=== PATIENT | female | born 1975 | race Caucasian/White ===

== ENCOUNTER 2018-10-06 14:05 | Inpatient (IN) ==
[2018-10-06 14:39] LABS: Hematocrit (blood only) 40.3 % (37-47); Mean Corpuscular Hgb Conc 34.7 g/dL (32-36); Mean Corpuscular Volume 92.6 fL (80-100); Mean Platelet Volume 10.6 fL (7.4-10.4); Platelet Count 277 K/uL (130-400); RDW Coefficient of Variation 13.8 % (11.5-14.5); Red Blood Count 4.35 M/uL (4.2-5.4); White Blood Count 13.01 K/uL (4.8-10.8)
[2018-10-06 14:48] LABS: Albumin Level 4.1 gm/dl (3.4-5.0); BUN Creatinine Ratio 9.8 (10-20); Blood Urea Nitrogen 10 mg/dl (7-18); Calcium 9.8 mg/dl (8.5-10.1); Carbon Dioxide 20 mmol/L (21-32); Chloride 107 mmol/L (98-107); Creatinine Clr Calc Pharmacy 58.8 ml/min; Est GFR (African American) 75.7; Est GFR (Non-African American) 65.3; Glucose 120 mg/dl (70-99); Potassium 3.6 mmol/L (3.5-5.1); Sodium 136 mmol/L (136-145)
--- NOTE | 2018-10-06 14:52 | XRay Report ---
XR chest 1V portable CLINICAL HISTORY: Chest pain and shortness of breath. COMPARISON STUDY: No previous studies for comparison. FINDINGS: Lung volumes are normal. Lungs are clear. There is no pneumothorax or pleural effusion. Car diac size is normal. Mediastinal contours are normal. There is no evidence for pulmonary edema. IMPRESSION: No acute cardiopulmonary findings. Electronically signed by: Patric Spear M.D. 10/06/2018 2:51 PM
[2018-10-06 14:53] LABS: Alanine Aminotransferase 19 U/L (12-78); Albumin Globulin Ratio 1.1 (0.9-2); Alkaline Phosphatase 84 U/L (45-117); Aspartate Aminotransferase 11 U/L (15-37); Bilirubin,Total 0.4 mg/dl (0.2-1); Globulin 3.9 gm/dl (2.5-4.0); Troponin I < 0.015 ng/ml (0-0.045)
[2018-10-06] MEDS ORDERED: NITROGLYCERIN 2% OINTMENT 30GM TUBE EXT STA (15:10)
[2018-10-06] MEDS ORDERED: HYDROmorphone INJ 0.5 MG/0.5 ML SYR IV STA ×2 (15:10→17:04)
[2018-10-06] MEDS ORDERED: ONDANSETRON INJ 2 MG/ML 2 ML VIAL IV STA (15:10)
[2018-10-06 15:21] LABS: ALC (manual) 5.27 K/uL (1.2-3.4); Lymphocytes # (manual) 3.47 K/uL (1.2-3.4); Lymphocytes % (manual) 26.7 %; Monocytes # (manual) 0.22 K/uL (0.11-0.59); Monocytes % (manual) 1.7 %; Neutrophils % (manual) 57.8 %
[2018-10-06 15:23] LABS: Pregnancy Test, Serum Negative (Negative)
[2018-10-06] MEDS ORDERED: OPTIRAY 320 125ml IV PRN (16:26)
--- NOTE | 2018-10-06 16:33 | CT Scan Report ---
CT ANGIOGRAM OF THE CHEST CLINICAL HISTORY: Atypical chest pain and shortness of breath. Possible pulmonary wasn't COMPARISON STUDY: Chest x-ray dated 10/06/2018 TECHNIQUE: Following the IV administration of 118 mL of Optiray-320, CT angiogram of the thorax was p erformed from the thoracic inlet to the lung bases utilizing the pulmonary embolus protocol. Images a re reviewed in the axial, sagittal, and coronal planes. IV contrast was administered without complica tion. MIP imaging was performed. A dose lowering technique was utilized adhering to the principles o f ALARA. CT DOSE: 230.29 mGy.cm FINDINGS: No pathologically enlarged axillary mediastinal or hilar lymph nodes were visualized. There was no evidence of thoracic aortic dilatation. There were no pulmonary artery filling defects to indicate acute pulmonary embolism. No pleural effusions are visualized. There was no evidence of focal pulmonary consolidation. There are mild dependent atelectatic changes IMPRESSION: 1. No acute intrathoracic findings 2. No evidence of acute pulmonary embolism 3. No evidence of focal pulmonary consolidation Electronically signed by: Favian Brandt M.D. 10/06/2018 4:32 PM
--- NOTE | 2018-10-06 17:10 | Emergency Department Note ---
ED Visit Note I assisted in the care of this patient with Dr. Holland. Please see his note for further details. . Resident Activity Tracking Resident Involvement: Resident Care Provided Care Provided: Adult ED
--- NOTE | 2018-10-06 18:12 | History & Physical Report ---
Date of Service October 06, 2018 Assessment & Plan (1) Substernal chest pain: Present on admission with chest pain, b/l arms tingling associated with diaphoresis Need to R/O ACS Risk factor smoker and family hx (Dad from heart attack at age 45) Initial troponin negative EKG showed T wave inversion CXR showed no acute finding CTA chest showed no evidence for PE Received 4 baby aspirin en route Will trend troponin Cardiology consult EKG finding discussed with Cardiology Dr. Terrazas Check Lipid panel in am ECHO in am Will keep NPO after midnight if needed any procedure Repeat EKG in am Will add morphine and nitro subl prn for pain Continue baby aspirin for now Currently denies any chest pain Will continue monitor in tele (2) D-dimer, elevated: Elevated D-dimer on admission CTA chest showed no PE (3) Tobacco use: Counseling on smoking cessation Declined any nicotine patch DVT px ambulates CODE STATUS FULL CODE History of Present Illness Chief Complaint: Chest Pain Primary Care Provider: NO PCP 43 yo Female with PMH of tobacco abuse, arthritis present to the ER for chest pain. Pt said that this morning while drinking coffee, she developed left side jaw pain. She said that then she developed mid sternal chest pain. She describes the chest pain pressure like, non radiating, constant, grade 8 out 10. She said that she developed also tingling in both arms. Pt said that she started to pace back and forth in her room, but the pain did not improve or worsening; although she became diaphoresis. She said that she called EMS. EMS gave her 4 baby aspirin and nitro en route with no relief. She said that in the ER she received IV pain med that help with the pain. Pt said that she never experienced any chest pain in the past. She said that her dad from a heart attack at age 45. Currently denies any chest pain, palpitation, dizziness, nausea and vomiting. Initial troponin done in the ER was negative and elevated D-dimer. EKG showed T wave inversion. 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 Current Living Situation: Family Other Information That Helps Us Care for You: No Feels Safe at Home: Yes Safety Concerns: Feels Safe At This Time Smoking Status: Current every day smoker Tobacco Type: cigarettes Do You Dip or Chew Tobacco: No Second Hand Exposure: No Hx Alcohol Use: No Hx Substance Use: No Review of Systems Review of Systems: All systems reviewed & are unremarkable except as noted in HPI & below Physical Exam Physical Exam: General- No acute distress Head- atraumatic Eyes- PERRL, EOMI, ENT- oropharynx clear Neck- supple, no JVD Lungs- clear to auscultation Heart- regular rhythm; no murmur Abdomen- normal bowel sounds, soft, nontender Extremities- no calf tenderness Neuro- alert, oriented x 3; PERRL, EOMI; no facial palsy; no dysarthria Skin- warm & dry Results & Data Vital Signs (Past 12 Hours) Vital Signs Temp Pulse Pulse Resp BP BP Pulse Ox 10/06/18 17:30 67 18 131/83 96 10/06/18 15:33 61 15 135/82 99 10/06/18 14:33 98 10/06/18 14:18 36.8 C 59 L 18 147/87 [address] ANGIOGRAM OF THE CHEST CLINICAL HISTORY: Atypical chest pain and shortness of breath. Possible pulmonary wasn't COMPARISON STUDY: Chest x-ray dated 10/06/2018 TECHNIQUE: Following the IV administration of 118 mL of Optiray-320, CT angiogram of the thorax was performed from the thoracic inlet to the lung bases utilizing the pulmonary embolus protocol. Images are reviewed in the axial, sagittal, and coronal planes. IV contrast was administered without complication. MIP imaging was performed. A dose lowering technique was utilized adhering to the principles of ALARA. CT DOSE: 230.29 mGy.cm FINDINGS: No pathologically enlarged axillary mediastinal or hilar lymph nodes were visualized. There was no evidence of thoracic aortic dilatation. There were no pulmonary artery filling defects to indicate acute pulmonary embo lism. No pleural effusions are visualized. There was no evidence of focal pulmonary consolidation. There are mild dependent atelectatic changes IMPRESSION: 1. No acute intrathoracic findings 2. No evidence of acute pulmonary embolism 3. No evidence of focal pulmonary consolidation Electronically signed by: Favian Brandt M.D. 10/06/2018 4:32 PM Dictated: 10/06/18 1629 Transcribed: 10/06/18 1631 XR chest 1V portable CLINICAL HISTORY: Chest pain and shortness of breath. COMPARISON STUDY: No previous studies for comparison. FINDINGS: Lung volumes are normal. Lungs are clear. There is no pneumothorax or pleural effusion. Cardiac size is normal. Mediastinal contours are normal. There is no evidence for pulmonary edema. IMPRESSION: No acute cardiopulmonary findings. Electronically signed by: Patric Spear M.D. 10/06/2018 2:51 PM Dictated: 10/06/18 1451 Transcribed: 10/06/18 1451
[2018-10-06] MEDS ORDERED: ACETAMINOPHEN 325 MG TAB PO PRN (19:54)
[2018-10-06] MEDS ORDERED: MoRPHine SULFATE 2 MG/ML CARP IV PRN (19:54)
[2018-10-06] MEDS ORDERED: NITROGLYCERIN SL 0.4 MG/TAB TAB SL PRN (19:54)
--- NOTE | 2018-10-06 20:30 | Emergency Department Note ---
Entered by Jennifer Decker acting as a scribe for ED Provider Note CHIEF COMPLAINT: Chest pain HISTORY OF PRESENT ILLNESS: The patient is a 43 year old female who presents to the Emergency Room with complaints of an episode of chest pain that has been occurring for 2 hours now. The patient states that she was eating when she began feeling a squeezing pain in her chest and down her left arm. The patient reports that she became short of breath and was unable to move. She states that she was given aspirin and 2 sprays of Nitro in the AMS prior to arrival. She states that her father of a myocardial infarction at age 45. Pt denies LOC, headache, fevers, chills, visual changes, neck pain, breathing difficulties, nausea, vomiting, abdominal pain, back pain, melena, hematochezia, urinary symptoms, numbness, weakness, lymphadenopathy, rash, or other complaints. REVIEW OF SYSTEMS: See HPI for pertinent positives and negatives. A total of ten systems were reviewed and were otherwise negative. PMHx/PSHx: Patient has a family history of heart issues. SOCIAL HISTORY: Patient lives at home. Patient is a smoker. PHYSICAL EXAM: GENERAL: Awake, alert, uncomfortable-appearing, in no distress HENT: Normocephalic, atraumatic. Oropharynx unremarkable. EYES: PERRL. Normal conjunctiva. Sclera non-icteric. NECK: Inspection normal. Non-tender. Supple. No nuchal rigidity. FROM. No masses. RESPIRATORY: Clear to auscultation. No wheezes. No rales. Normal respiratory effort. CARDIAC: Normal rate. Normal rhythm. No murmurs. No rubs. Extremities warm and well perfused. Pulses equal. No JVD. GI: Soft, non-distended. No tenderness to palpation. No rebound or guarding. No masses. RECTAL: Deferred. MUSCULOSKELETAL: Atraumatic. Chest examination reveals no tenderness. The back is symmetrical on inspection without obvious abnormality. There is no CVA tenderness to palpation. No joint edema. LOWER EXTREMITIES: Calves are equal size bilaterally and non-tender. No edema. No discoloration. NEURO: Normal sensorium. No sensory or motor deficits noted. SKIN: No rash or jaundice noted. EMERGENCY DEPARTMENT COURSE: 1505: Past medical records reviewed. The patient was evaluated in room B8, and a complete history and physical examination were performed. 1520: I reevaluated the patient at this time and she is resting comfortably. 1720: I discussed the patients case with Barb Arenas PA-C. She informed me that the patient would be admitted and further treated by doctor Fadia Desai. MEDICAL DECISION MAKING: B8 Triage Nursing notes reviewed and agree them. Additional history obtained from the family. The patient's history was concerning for chest pain. Differential diagnosis: Etiologies such as cardiac ischemia, aortic dissection, pulmonary embolism, pneumonia, pneumothorax, musculoskeletal, infections, pericarditis, myocarditis, esophageal rupture, gastrointestinal, as well as others were entertained. Physical examination: As above. ER treatment provided: Nitropaste IV Dilaudid and Zofran On reassessment the patient felt better. Diagnostic interpretation by me: The electrocardiogram was concerning for ischemic change. No ST elevation. The labs revealed an unremarkable CBC and chemistry panel. Troponin negative. D-dimer was abnormal. Imaging studies: Chest x-ray was negative. CT PE study was performed and did not reveal any evidence of pulmonary emboli. The patient has concerning cardiac risk factors and an abnormal ECG. Her symptoms are concerning for possible cardiac chest pain. She will need further management in the hospital. Consultation: A consultation was placed with the hospitalist. The case was discussed and diagnostics were reviewed. The patient was evaluated in the ER for further treatment. IMPRESSION: Substernal Chest pain, Acute ECG changes PLAN: The patient was admitted for further evaluation and management. The scribe's documentation has been prepared under my direction and personally reviewed by me in its entirety. I confirm that the note above accurately reflects all work, treatment, procedures, and medical decision making performed by me. 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 Current Living Situation: Family Other Information That Helps Us Care for You: No Feels Safe at Home: Yes Safety Concerns: Feels Safe At This Time Smoking Status: Current every day smoker Tobacco Type: cigarettes Do You Dip or Chew Tobacco: No Second Hand Exposure: No Hx Alcohol Use: No Hx Substance Use: No Results & Data Vital Signs Vital Signs - 24 hr 10/06/18 14:18 10/06/18 14:33 10/06/18 15:33 Temperature 36.8 C Temperature Source Oral Sepsis Recent Fever Within 48 Hours No Sepsis New/Unexplained Change in Mental Status No Sepsis Action Taken by Nursing No Action Required Pulse Rate 59 L Pulse Rate [Left Finger] 61 Pulse Rhythm [Left Finger] Respiratory Rate 18 15 Respiratory Effort / Characteristics Non-Labored Respiratory Depth Normal Normal Respiratory Pattern Regular Blood Pressure 147/87 H Blood Pressure [Right Arm] 135/82 Blood Pressure Mean 107 Blood Pressure Mean [Right Arm] 99 Pulse Oximetry 99 98 99 Oxygen Delivery Method Room Air Room Air Room Air 10/06/18 17:30 Temperature Temperature Source Sepsis Recent Fever Within 48 Hours Sepsis New/Unexplained Change in Mental Status Sepsis Action Taken by Nursing Pulse Rate Pulse Rate [Left Finger] 67 Pulse Rhythm [Left Finger] Regular Respiratory Rate 18 Respiratory Effort / Characteristics Non-Labored Spontaneous Respiratory Depth Normal Respiratory Pattern Regular Blood Pressure Blood Pressure [Right Arm] 131/83 Blood Pressure Mean Blood Pressure Mean [Right Arm] 99 Pulse Oximetry 96 Oxygen Delivery Method Room Air Home Medications Current Medication List: was personally reviewed by me Laboratory Data Attestation: I reviewed the patient's lab results. Result diagrams: 10/06/18 13:44 10/06/18 13:44 Lab Results 10/06/18 10/06/18 10/06/18 Range/Units 13:44 13:44 13:44 WBC 13.01 H (4.8-10.8) K/uL RBC 4.35 (4.2-5.4) M/uL Hgb 14.0 (12.0-16.0) g/dL Hct 40.3 (37-47) % MCV 92.6 (80-100) fL MCH 32.2 (25-34) pg MCHC 34.7 (32-36) g/dL RDW Std Deviation 47.0 H (36.4-46.3) fL RDW Coeff of Angie 13.8 (11.5-14.5) % Plt Count 277 (130-400) K/uL MPV 10.6 H (7.4-10.4) fL Neutrophils % (Manual) 57.8 % Lymphocytes % (Manual) 26.7 % Reactive Lymphs % (Man) 13.8 % Monocytes % (Manual) 1.7 % Neutrophils # (Manual) 7.52 H (1.4-6.5) K/uL Total Absolute Neuts 7.52 H (1.4-6.5) K/uL Lymphocytes # (Manual) 3.47 H (1.2-3.4) K/uL Reactive Lymphs # 1.80 K/uL Total Abs Lymphocytes 5.27 H (1.2-3.4) K/uL Monocytes # (Manual) 0.22 (0.11-0.59) K/uL POC D-Dimer (0-450) ng/mlFEU Sodium 136 (136-145) mmol/L Potassium 3.6 (3.5-5.1) mmol/L Chloride 107 (98-107) mmol/L Carbon Dioxide 20 L (21-32) mmol/L Anion Gap 9.0 (3-11) BUN 10 (7-18) mg/dl Creatinine 1.04 (0.6-1.2) mg/dl Est Cr Clr Drug Dosing 58.8 ml/min Est GFR ( Amer) 75.7 Est GFR (Non-Af Amer) 65.3 BUN/Creatinine Ratio 9.8 L (10-20) Glucose 120 H (70-99) mg/dl Calcium 9.8 (8.5-10.1) mg/dl Total Bilirubin 0.4 (0.2-1) mg/dl AST 11 L (15-37) U/L ALT 19 (12-78) U/L Alkaline Phosphatase 84 (45-117) U/L Troponin I < 0.015 (0-0.045) ng/ml Total Protein 8.0 (6.4-8.2) gm/dl Albumin 4.1 (3.4-5.0) gm/dl Globulin 3.9 (2.5-4.0) gm/dl Albumin/Globulin Ratio 1.1 (0.9-2) Lipase 168 (73-393) U/L HCG, Qual Negative (Negative) 10/06/18 Range/Units 14:44 WBC (4.8-10.8) K/uL RBC (4.2-5.4) M/uL Hgb (12.0-16.0) g/dL Hct (37-47) % MCV (80-100) fL MCH (25-34) pg MCHC (32-36) g/dL RDW Std Deviation (36.4-46.3) fL RDW Coeff of Angie (11.5-14.5) % Plt Count (130-400) K/uL MPV (7.4-10.4) fL Neutrophils % (Manual) % Lymphocytes % (Manual) % Reactive Lymphs % (Man) % Monocytes % (Manual) % Neutrophils # (Manual) (1.4-6.5) K/uL Total Absolute Neuts (1.4-6.5) K/uL Lymphocytes # (Manual) (1.2-3.4) K/uL Reactive Lymphs # K/uL Total Abs Lymphocytes (1.2-3.4) K/uL Monocytes # (Manual) (0.11-0.59) K/uL POC D-Dimer > 450 H* (0-450) ng/mlFEU Sodium (136-145) mmol/L Potassium (3.5-5.1) mmol/L Chloride (98-107) mmol/L Carbon Dioxide (21-32) mmol/L Anion Gap (3-11) BUN (7-18) mg/dl Creatinine (0.6-1.2) mg/dl Est Cr Clr Drug Dosing ml/min Est GFR ( Amer) Est GFR (Non-Af Amer) BUN/Creatinine Ratio (10-20) Glucose (70-99) mg/dl Calcium (8.5-10.1) mg/dl Total Bilirubin (0.2-1) mg/dl AST (15-37) U/L ALT (12-78) U/L Alkaline Phosphatase (45-117) U/L Troponin I (0-0.045) ng/ml Total Protein (6.4-8.2) gm/dl Albumin (3.4-5.0) gm/dl Globulin (2.5-4.0) gm/dl Albumin/Globulin Ratio (0.9-2) Lipase (73-393) U/L HCG, Qual (Negative) Administered Medications Discontinued Medications Hydromorphone HCl (Dilaudid) 0.5 mg IV NOW STA Stop: 10/06/18 15:11 Last Admin: 10/06/18 15:33 Dose: 0.5 mg Documented by: [id number] Hydromorphone HCl (Dilaudid) 0.25 mg IV NOW STA Stop: 10/06/18 17:05 Last Admin: 10/06/18 17:42 Dose: 0.25 mg Documented by: [id number] Ioversol (Optiray 320 125ml) 118 ml IV ONCE PRN PRN Reason: Interaction Checking Stop: 10/10/18 16:25 Last Admin: 10/06/18 16:27 Dose: 1 ml Documented by: [id number] Nitroglycerin (Nitro-Bid 2%) 0.5 inch EXT NOW STA Stop: 10/06/18 15:11 Last Admin: 10/06/18 15:33 Dose: 0.5 inch Documented by: [id number] Ondansetron HCl (Zofran) 4 mg IV NOW STA Stop: 10/06/18 15:11 Last Admin: 10/06/18 15:33 Dose: 4 mg Documented by: [id number] Imaging Data Radiologist's Impression: Radiology results as stated below per my review and the radiologist's interpretation: XR chest 1V portable CLINICAL HISTORY: Chest pain and shortness of breath. COMPARISON STUDY: No previous studies for comparison. FINDINGS: Lung volumes are normal. Lungs are clear. There is no pneumothorax or pleural effusion. Cardiac size is normal. Mediastinal contours are normal. There is no evidence for pulmonary edema. IMPRESSION: No acute cardiopulmonary findings. Electronically signed by: Patric Spear M.D. 10/06/2018 2:[address] ANGIOGRAM OF THE CHEST CLINICAL HISTORY: Atypical chest pain and shortness of breath. Possible pulmonary wasn't COMPARISON STUDY: Chest x-ray dated 10/06/2018 TECHNIQUE: Following the IV administration of 118 mL of Optiray-320, CT ang iogram of the thorax was performed from the thoracic inlet to the lung bases utilizing the pulmonary embolus protocol. Images are reviewed in the axial, sagittal, and coronal planes. IV contrast was administered without complication. MIP imaging was performed. A dose lowering technique was utilized adhering to the principles of ALARA. CT DOSE: 230.29 mGy.cm FINDINGS: No pathologically enlarged axillary mediastinal or hilar lymph nodes were visualized. There was no evidence of thoracic aortic dilatation. There were no pulmonary artery filling defects to indicate acute pulmonary embolism. No pleural effusions are visualized. There was no evidence of focal pulmonary consolidation. There are mild dependent atelectatic changes IMPRESSION: 1. No acute intrathoracic findings 2. No evidence of acute pulmonary embolism 3. No evidence of focal pulmonary consolidation Electronically signed by: Favian Brandt M.D. 10/06/2018 4:32 PM ECG Data Attestation: I personally reviewed and interpreted this ECG as follows: Indication: chest pain Rate (beats per minute): 60 Rhythm: normal sinus Findings: + T-wave inversion (anterior); no PAC, no PVC and no ST elevation Comparison ECG Date: from (10/06/2018) Change: no significant change Blood Pressure Blood Pressure Findings: Normal blood pressure Blood Pressure Disposition: did not require urgent referral Discharge Plan Visit Data *Final* Discharge Date/Time: 10/06/18 19:33 Chief Complaint: Chest Pain ED Provider: Christiano Holland ED Midlevel Provider: Dhaval Yun Discharge Problem: Substernal chest pain, Acute electrocardiogram changes Patient Disposition: Admitted As Inpatient Discharge Instructions Interventions: ED Discharge Assessment Last Done: 10/06/18 19:33 The scribe's documentation has been prepared under my direction and personally reviewed by me in its entirety. I confirm that the note above accurately reflects all work, treatment, procedures, and medical decision making performed by me.
[2018-10-06] MEDS: Heparin Adult STANDARD Wt-Based Dextrose 5% 25,000 units/500 mL IV SCH (22:11)
[2018-10-06] MEDS ORDERED: HEPARIN IV BOLUS 4,000 UNITS in SYRINGE 0 ML IV ONE (22:15)
[2018-10-07 02:26] LABS: BUN Creatinine Ratio 10.7 (10-20); Calcium 8.9 mg/dl (8.5-10.1); Creatinine Clr Calc Pharmacy 69.8 ml/min; Est GFR (African American) 93.9; Potassium 3.9 mmol/L (3.5-5.1)
[2018-10-07 02:32] LABS: Troponin I 19.6 ng/ml (0-0.045)
[2018-10-07 05:13] LABS: Partial Thromboplastin Ratio 2.2
[2018-10-07 06:00] LABS: Partial Thromboplastin Time 58.7 Seconds (21.0-31.0)
[2018-10-07] MEDS ORDERED: CLOPIDOGREL BISULFATE 300 MG TAB PO STA (08:01)
--- NOTE | 2018-10-07 08:05 | Cardiology Consultation ---
Date of Consultation October 07, 2018 Assessment & Plan (1) Non-ST elevation (NSTEMI) myocardial infarction: (2) Tobacco use: (3) Dyslipidemia, goal LDL below 70: (4) AIVR (accelerated idioventricular rhythm): (5) Family history of premature CAD: Discuss diagnosis of NSTEMI at length with patient. Continue aspirin, and IV heparin. We will add Plavix 300 mg x 1 now as well as high-dose statin therapy, atorvastatin 80 mg daily. Continue to follow telemetry. We will add low-dose beta-rajendra if heart rate allows, however, patient bradycardic at this time. Blood pressure controlled. Continue topical nitrates. Risks, benefits, alternatives to cardiac catheterization discussed at length. Patient agreeable to procedure. Plan for cardiac catheterization Tuesday if patient remains pain-free and stable at this time. Recommend urgent cardiac catheterization with any recurrent symptoms during hospitalization. Resting 2D transthoracic echocardiogram pending at this time. AIVR recorded on telemetry is secondary to reperfusion in the setting of acute NSTEMI. ECG normal this a.m. Resting 2D transthoracic echocardiogram pending. History of Present Illness Reason for Consultation: NSTEMI Requesting Physician: Dr. Adams Attending Physician: Claudio Adams MD History of Present Illness 43-year-old female presented to the emergency department with jaw and chest discomfort. Patient noted jaw pain beginning last evening around dinnertime. Discomfort traveled to her substernal region and then down both arms. + Associated shortness of breath and diaphoresis. Took 4 baby aspirin at home and summoned EMS. She was treated with sublingual nitroglycerin x2 as well as 2 doses of intravenous Dilaudid. Pain-free upon arrival to the progressive care unit. Troponin trending upward overnight peaking at 19 this morning. Pain-free since admission. Currently resting comfortably. States "I feel back to normal". Resting 2D transthoracic echocardiogram pending at this time. Occasional PVCs noted on telemetry with brief salvos of accelerated idioventricular rhythm and 4-5 beat salvos. Admits to daily tobacco use. Also reports family history of premature coronary artery disease, father with myocardial infarction at age 45. Allergies Allergy/AdvReac Type Severity Reaction Status Date / Time Sulfa (Sulfonamide Allergy Unknown HIVES Verified 10/06/18 15:00 Antibiotics) Home Medications Home Medications Medication Instructions Recorded Confirmed Type celecoxib [Celebrex] 200 mg PO DAILY 10/06/18 10/06/18 History vitamin B complex 1 tab PO DAILY 10/06/18 10/06/18 History Patient History Medical History Tobacco use No known health problems Family History Other Myocardial infarction Social History Preferred Language: Turkish Communication Ability: Effective Gold Leaf Layer Required: No Current Living Situation: Family Other Information That Helps Us Care for You: No Feels Safe at Home: Yes Safety Concerns: Feels Safe At This Time Smoking Status: Current every day smoker Tobacco Type: cigarettes Do You Dip or Chew Tobacco: No Second Hand Exposure: No Hx Alcohol Use: No Hx Substance Use: No Review of Systems Review of Systems: All systems reviewed & are unremarkable except as noted in HPI & below Physical Exam Physical Exam: General: NAD, AAO x3, well nourished. HEENT: Normocephalic. Atraumatic. Conjunctiva pink, no scleral icterus. Neck: No carotid bruits, the carotid upstrokes are brisk. No JVD. No HJR Heart: Regular normal S-1 and S-2 no S-3 or S-4 gallop. No murmurs or rub appreciated. PMI is not displaced. No RV heave. Lungs: Clear bilateral without rales , rhonchi, or wheeze. Abdomen: Normal bowel sounds. Soft. Nontender. No masses or organomegaly. No abdominal bruits. Extremities: No clubbing, cyanosis, or edema. Pulses: Femoral 3/4, radial=3/4, Dorsalis pedis =2/4, posterior tibial=2/4. Neuro: Cranial nerves grossly intact. No focal motor deficit. Results & Data Vital Signs (Past 12 Hours) Vital Signs Temp Pulse Pulse Resp BP Pulse Ox 10/07/18 07:39 36.9 C 56 L 18 107/66 97 10/07/18 04:00 36.8 C 48 L 16 108/68 94 10/07/18 02:57 36.8 C 61 16 103/67 96 10/06/18 23:36 36.4 C L 67 16 125/76 95 10/06/18 23:00 55 L 10/06/18 20:09 36.8 C 54 L 18 127/81 97 Laboratory Results Laboratory Results - last 24 hr 10/06/18 10/06/18 10/06/18 13:44 13:44 13:44 WBC 13.01 H RBC 4.35 Hgb 14.0 Hct 40.3 MCV 92.6 MCH 32.2 MCHC 34.7 RDW Std Deviation 47.0 H RDW Coeff of Angie 13.8 Plt Count 277 MPV 10.6 H Neutrophils % (Manual) 57.8 Lymphocytes % (Manual) 26.7 Reactive Lymphs % (Man) 13.8 Monocytes % (Manual) 1.7 Neutrophils # (Manual) 7.52 H Total Absolute Neuts 7.52 H Lymphocytes # (Manual) 3.47 H Reactive Lymphs # 1.80 Total Abs Lymphocytes 5.27 H Monocytes # (Manual) 0.22 APTT PTT Ratio POC D-Dimer Sodium 136 Potassium 3.6 Chloride 107 Carbon Dioxide 20 L Anion Gap 9.0 BUN 10 Creatinine 1.04 Est Cr Clr Drug Dosing 58.8 Est GFR ( Amer) 75.7 Est GFR (Non-Af Amer) 65.3 BUN/Creatinine Ratio 9.8 L Glucose 120 H Calcium 9.8 Total Bilirubin 0.4 AST 11 L ALT 19 Alkaline Phosphatase 84 Troponin I < 0.015 Total Protein 8.0 Albumin 4.1 Globulin 3.9 Albumin/Globulin Ratio 1.1 Triglycerides Cholesterol LDL Cholesterol, Calc VLDL Cholesterol, Calc HDL Cholesterol Cholesterol/HDL Ratio Lipase 168 HCG, Qual Negative 10/06/18 10/06/18 10/07/18 14:44 19:58 01:55 WBC RBC Hgb Hct MCV MCH MCHC RDW Std Deviation RDW Coeff of Angie Plt Count MPV Neutrophils % (Manual) Lymphocytes % (Manual) Reactive Lymphs % (Man) Monocytes % (Manual) Neutrophils # (Manual) Total Absolute Neuts Lymphocytes # (Manual) Reactive Lymphs # Total Abs Lymphocytes Monocytes # (Manual) APTT PTT Ratio POC D-Dimer > 450 H* Sodium 138 Potassium 3.9 Chloride 109 H Carbon Dioxide 22 Anion Gap 7.0 BUN 9 Creatinine 0.87 Est Cr Clr Drug Dosing 69.8 Est GFR ( Amer) 93.9 Est GFR (Non-Af Amer) 81.0 BUN/Creatinine Ratio 10.7 Glucose 112 H Calcium 8.9 Total Bilirubin AST ALT Alkaline Phosphatase Troponin I 3.990 H* 19.600 H* Total Protein Albumin Globulin Albumin/Globulin Ratio Triglycerides 140 Cholesterol 183 LDL Cholesterol, Calc 118 VLDL Cholesterol, Calc 28 HDL Cholesterol 37 Cholesterol/HDL Ratio 5 Lipase HCG, Qual 10/07/18 04:21 WBC RBC Hgb Hct MCV MCH MCHC RDW Std Deviation RDW Coeff of Angie Plt Count MPV Neutrophils % (Manual) Lymphocytes % (Manual) Reactive Lymphs % (Man) Monocytes % (Manual) Neutrophils # (Manual) Total Absolute Neuts Lymphocytes # (Manual) Reactive Lymphs # Total Abs Lymphocytes Monocytes # (Manual) APTT 58.7 H* PTT Ratio 2.2 POC D-Dimer Sodium Potassium Chloride Carbon Dioxide Anion Gap BUN Creatinine Est Cr Clr Drug Dosing Est GFR ( Amer) Est GFR (Non-Af Amer) BUN/Creatinine Ratio Glucose Calcium Total Bilirubin AST ALT Alkaline Phosphatase Troponin I Total Protein Albumin Globulin Albumin/Globulin Ratio Triglycerides Cholesterol LDL Cholesterol, Calc VLDL Cholesterol, Calc HDL Cholesterol Cholesterol/HDL Ratio Lipase HCG, Qual
[2018-10-07] MEDS: ATORVASTATIN 40 MG TAB PO SCH (09:12)
[2018-10-07] MEDS: ASPIRIN 81 MG ECTAB PO SCH (09:12)
--- NOTE | 2018-10-07 10:37 | Hospitalist Progress Note ---
Date of Service October 07, 2018 Assessment & Plan (1) Non-ST elevation (NSTEMI) myocardial infarction: (2) Substernal chest pain: Present on admission with Jaw pain, chest discomfort, b/l arms tingling associated with diaphoresis Risk factor smoker and family hx (Dad from heart attack at age 45) Initial troponin negative, troponin peaked to 32 EKG showed T wave inversion on admission CXR showed no acute finding CTA chest showed no evidence for PE Repeat EKG this morning showed no ischemic changes Will continue trend troponin until trending down Cardiology consult Plavix [id number] loading dose given Was starting on plavix 75mg, high dose statin and IV heparin drip Case discussed with cardiology recommended to add topical nitrate If patient develops, any headache ok to d/c topical nitro Will consider to add a low dose beta rajendra if HR improves Plan to get a cardiac cath on Tuesday Chol 183 and LDL 118 ECHO pending Continue monitor in tele (3) D-dimer, elevated: Elevated D-dimer on admission CTA chest showed no PE (4) Dyslipidemia, goal LDL below 70: LDL 118 and Chol 183 Starting on atorvastatin 80mg daily Counseling to follow a healthy diet with low cholesterol (5) Tobacco use: Counseling on smoking cessation Declined any nicotine patch DVT px ambulates CODE STATUS FULL CODE Disposition Continue monitor Subjective Pt was seen and examined Lying in bed with no distress Pt said that she has not had any chest pain since admitting She said that she feels good Denies any chest pain, palpitation, dizziness and SOB Physical Exam Physical Exam: General- No acute distress Head- atraumatic Eyes- PERRL, EOMI, ENT- oropharynx clear Neck- supple, no JVD Lungs- clear to auscultation Heart- regular rhythm; no murmur Abdomen- normal bowel sounds, soft, nontender Extremities- no calf tenderness Neuro- alert, oriented x 3; PERRL, EOMI; no facial palsy; no dysarthria Skin- warm & dry Results & Data Vital Signs (Past 12 Hours) Vital Signs Temp Pulse Pulse Resp BP Pulse Ox 10/07/18 07:39 36.9 C 56 L 18 107/66 97 10/07/18 04:00 36.8 C 48 L 16 108/68 94 10/07/18 02:57 36.8 C 61 16 103/67 96 10/06/18 23:36 36.4 C L 67 16 125/76 95 07/19/19 23:00 55 L
[2018-10-07] MEDS: NITROGLYCERIN 2% OINTMENT 30GM TUBE EXT SCH ×3 (12:04→22:58)
[2018-10-07] MEDS: Heparin Adult STANDARD Wt-Based Dextrose 5% 25,000 units/500 mL IV SCH (22:58)
[2018-10-08] MEDS: NITROGLYCERIN 2% OINTMENT 30GM TUBE EXT SCH ×2 (05:48→11:49)
[2018-10-08 06:27] LABS: Partial Thromboplastin Ratio 1.8
[2018-10-08 06:32] LABS: Partial Thromboplastin Time 49.3 Seconds (21.0-31.0)
[2018-10-08] MEDS: ATORVASTATIN 40 MG TAB PO SCH (07:46)
[2018-10-08] MEDS: ASPIRIN 81 MG ECTAB PO SCH (07:46)
[2018-10-08] MEDS: CLOPIDOGREL BISULFATE 75 MG TAB PO SCH (07:46)
--- NOTE | 2018-10-08 12:18 | Cardiology Progress Note ---
Date of Service October 08, 2018 Assessment & Plan (1) Non-ST elevation (NSTEMI) myocardial infarction: (2) Tobacco use: (3) Dyslipidemia, goal LDL below 70: (4) AIVR (accelerated idioventricular rhythm): (5) Family history of premature CAD: Risks, benefits, alternatives to cardiac catheterization discussed at length. Patient agreeable. She is a drug-eluting stent candidate. IV heparin be placed on hold at 7 AM in anticipation of procedure. Continue aspirin, Plavix, statin therapy. Discontinue topical nitrates. Add low-dose beta-rajendra, metoprolol 12.5 mg twice daily. Subjective Patient seen and examined at the bedside. Denies chest pain or unusual shortness of breath. No dysrhythmias on telemetry. No recurrent AIVR. No signs/symptoms of GI/ blood loss. Tolerating current medications. Offers no concerns/complaints at this time. Review of Systems Review of Systems: All systems reviewed & are unremarkable except as noted in HPI & below Physical Exam Physical Exam: General: NAD, AAO x3, well nourished. HEENT: Normocephalic. Atraumatic. Conjunctiva pink, no scleral icterus. Neck: No carotid bruits, the carotid upstrokes are brisk. No JVD. No HJR Heart: Regular normal S-1 and S-2 no S-3 or S-4 gallop. No murmurs or rub appreciated. PMI is not displaced. No RV heave. Lungs: Clear bilateral without rales , rhonchi, or wheeze. Abdomen: Normal bowel sounds. Soft. Nontender. No masses or organomegaly. No abdominal bruits. Extremities: No clubbing, cyanosis, or edema. Pulses: radial=2/4, Dorsalis pedis =2/4, posterior tibial=2/4. Neuro: Cranial nerves grossly intact. No focal motor deficit. Results & Data Vital Signs (Past 12 Hours) Vital Signs Temp Pulse Pulse Resp BP Pulse Ox 10/08/18 11:58 37.0 C 71 18 132/88 97 10/08/18 08:00 52 L 10/08/18 07:39 36.8 C 72 16 110/76 98 10/08/18 03:08 36.8 C 64 16 109/71 96
[2018-10-08] MEDS: METOPROLOL TARTRATE 25 MG TAB PO SCH ×2 (13:11→21:26)
--- NOTE | 2018-10-08 18:32 | Hospitalist Progress Note ---
Date of Service October 08, 2018 Assessment & Plan (1) Non-ST elevation (NSTEMI) myocardial infarction: (2) Substernal chest pain: Present on admission with Jaw pain, chest discomfort, b/l arms tingling associated with diaphoresis Risk factor smoker and family hx (Dad from heart attack at age 45) Initial troponin negative, troponin peaked to 32, then trending 29 EKG showed T wave inversion on admission CXR showed no acute finding CTA chest showed no evidence for PE Repeat EKG showed no ischemic changes Received Plavix [id number] loading Continue plavix 75mg, aspirin, statin and IV heparin drip Nitrate discontinued and starting on low dose metoprolol 12.5mg Plan to get for cardiac cath on Tuesday Chol 183 and LDL 118 ECHO showed small sinus wall motion abnormality involving the base and mid posterior wall and the base lateral wall with hypokinesis of the segment normal left ventricle systolic function with ejection fraction 60-65% Continue monitor in tele Will make NPO after midnight for cardiac cath (3) D-dimer, elevated: Elevated D-dimer on admission CTA chest showed no PE (4) Dyslipidemia, goal LDL below 70: LDL 118 and Chol 183 Starting on atorvastatin 80mg daily Counseling to follow a healthy diet with low cholesterol (5) Tobacco use: Counseling on smoking cessation Declined any nicotine patch DVT px ambulates CODE STATUS FULL CODE Disposition Continue monitor Subjective Pt was seen and examined Lying in bed with no distress eating Pt said that she feels fine Denies any chest pain, palpitation, dizziness and SOB Physical Exam Physical Exam: General- No acute distress Head- atraumatic Eyes- PERRL, EOMI, ENT- oropharynx clear Neck- supple, no JVD Lungs- clear to auscultation Heart- regular rhythm; no murmur Abdomen- normal bowel sounds, soft, nontender Extremities- no calf tenderness Neuro- alert, oriented x 3; PERRL, EOMI; no facial palsy; no dysarthria Skin- warm & dry Results & Data Vital Signs (Past 12 Hours) Vital Signs Temp Pulse Pulse Resp BP Pulse Ox 10/08/18 15:15 37.1 C 54 L 55 L 20 114/78 96 10/08/18 11:58 37.0 C 71 18 132/88 97 10/08/18 08:00 52 L 10/08/18 07:39 36.8 C 72 16 110/76 98
[2018-10-08] MEDS: Heparin Adult STANDARD Wt-Based Dextrose 5% 25,000 units/500 mL IV SCH (21:31)
[2018-10-09 05:47] LABS: Hematocrit (blood only) 37.5 % (37-47); Hemoglobin 12.7 g/dL (12.0-16.0); Mean Corpuscular Hgb Conc 33.9 g/dL (32-36); Mean Corpuscular Volume 94.5 fL (80-100); Mean Platelet Volume 10.5 fL (7.4-10.4); Platelet Count 217 K/uL (130-400); RDW Standard Deviation 48.7 fL (36.4-46.3); Red Blood Count 3.97 M/uL (4.2-5.4); White Blood Count 10.78 K/uL (4.8-10.8)
[2018-10-09 06:04] LABS: Partial Thromboplastin Ratio 1.8
[2018-10-09 06:05] LABS: Partial Thromboplastin Time 48.1 Seconds (21.0-31.0)
[2018-10-09 06:19] LABS: BUN Creatinine Ratio 12.6 (10-20); Calcium 8.7 mg/dl (8.5-10.1); Creatinine Clr Calc Pharmacy 61.5 ml/min; Est GFR (African American) 80.3; Est GFR (Non-African American) 69.3; Potassium 3.8 mmol/L (3.5-5.1)
[2018-10-09] MEDS ORDERED: HEPARIN (PORCINE) 1000 UNIT/ML 10 ML (CATH LAB USE ONLY) ONE (07:46)
[2018-10-09] MEDS ORDERED: MIDAZOLAM HCL 1 MG/ML 2ML VIAL ONE ×2 (07:46→08:59)
[2018-10-09] MEDS ORDERED: fentaNYL citrate 100 MCG/2 ML VIAL ONE (07:46)
[2018-10-09] MEDS ORDERED: NiCARDipine HCL INJ 2.5 MG/ML 10 ML AMP ONE (07:46)
[2018-10-09] MEDS ORDERED: NITROGLYCERIN/D5W 100MCG/ML 20ML SYR ONE (07:47)
[2018-10-09] MEDS ORDERED: ASPIRIN 81 MG CHEW ONE (07:58)
[2018-10-09] MEDS ORDERED: CLOPIDOGREL BISULFATE 75 MG TAB ONE (07:58)
--- NOTE | 2018-10-09 08:53 | Pre Anesthesia Assessment ---
Date of Service October 09, 2018 Pre Sedation Assessment Vital Signs Temp Pulse Pulse Resp BP BP Pulse Ox 10/10/18 12:59 36.9 C 61 16 113/90 95 10/10/18 11:47 56 L 10/10/18 11:30 36.9 C 61 16 110/69 95 10/10/18 08:24 36.9 C 66 20 111/66 97 10/10/18 04:47 36.8 C 65 17 110/70 99 10/10/18 01:02 58 L 10/09/18 23:25 36.7 C 56 L 17 109/56 L 97 10/09/18 19:42 36.7 C 72 20 113/90 98 10/09/18 19:08 57 L 10/09/18 15:05 36.9 C 53 L 18 124/78 98 10/09/18 14:05 61 16 135/85 98 Cardiovascular RRR, no murmur, no edema Respiratory normal respiratory effort, lungs clear to auscultation Pre-Sedation Airway Assessment Smoking Status: Current every day smoker ASA: ASA3 NPO Status Date of Last Intake of Fluids: 10/08/18 Time of Last Intake of Fluids: 22:53 Date of Last Intake of Solid Food: 10/08/18 Time of Last Intake of Solid Foods: 22:53 Procedure Planning Contraindications for Sedation: none Current Medications Reviewed: Yes Notes The planned sedation has been discussed with the patient. Informed Consent was obtained. I have identified the patient, determined the appropriateness of sedation and have assessed the patient immediately prior to the procedure. All medicine(s) and interventions are by my order.
--- NOTE | 2018-10-09 08:53 | Post Anesthesia Assessment ---
Date of Service October 09, 2018 Post Sedation Assessment Vital Signs Temp Pulse Pulse Resp BP BP Pulse Ox 10/10/18 12:59 36.9 C 61 16 113/90 95 10/10/18 11:47 56 L 10/10/18 11:30 36.9 C 61 16 110/69 95 10/10/18 08:24 36.9 C 66 20 111/66 97 10/10/18 04:47 36.8 C 65 17 110/70 99 10/10/18 01:02 58 L 10/09/18 23:25 36.7 C 56 L 17 109/56 L 97 10/09/18 19:42 36.7 C 72 20 113/90 98 10/09/18 19:08 57 L 10/09/18 15:05 36.9 C 53 L 18 124/78 98 10/09/18 14:05 61 16 135/85 98 Recovery Score Activity: Moves 4 extremities Respiration: Deep Breath/Cough Circulation: +/-20% PreAnes Value Consciousness: Fully Awake Oxygen Saturation: > 92% On Room Air Post Sedation Plan On clinical assessment, the patient appears to have tolerated the sedation without complications. Patient is recovering as anticipated. Patient will continue to be monitored by nursing and may be discharged when sedation discharge criteria are met per below protocol. Upon Completions of procedure and additional 15 minutes continue every 5 minute vital signs and the P.A.R. score; then discharge to a Phase I or Fast Track to Phase II per the following guidelines: * Discharge Patient to appropriate Phase II area if PAR is 8 or greater or return to pre- procedure baseline. The post - procedure orders will be as directed. * If PAR score is less than 8 or not return to pre-procedure baseline then patient will follow Phase I monitoring till PAR is reached for Phase II. The Phase I may be done in procedure room or may call to secure a Phase I area. * If naloxone or flumazenil are used for reversal, hold in Phase I for continued monitoring from when last reversal dose was given for a minimum of 60 minutes or longer pending the nurse and/or physician discretion of patient condition before discharge to Phase II. Please call the Sedation Physician to re-evaluate and complete post-note for discharge to Phase II area. Do NOT discharge from procedure sedation or Phase 1 until post- sedation evaluation note is complete by procedure /sedation MD Sedation Discharge Instructions to be given to the patient at discharge to home.
--- NOTE | 2018-10-09 08:56 | Cardiology Progress Note ---
Date of Service October 09, 2018 Assessment & Plan (1) Non-ST elevation (NSTEMI) myocardial infarction: (2) Tobacco use: (3) Dyslipidemia, goal LDL below 70: (4) AIVR (accelerated idioventricular rhythm): (5) Family history of premature CAD: Continue current medications. Risk, benefits, alternatives to cardiac catheterization discussed at length. Patient agreeable to procedure and percutaneous intervention if indicated. Loaded with Plavix on 10/07/2018. IV heparin on hold. Further recommendations pending results of catheterization. Subjective Patient seen and examined the bedside. No recurrent chest pain overnight. He anderson discontinued at 7 AM. No dysrhythmias on telemetry. present at bedside. Offers no additional concerns/complaints at this time. Review of Systems Review of Systems: All systems reviewed & are unremarkable except as noted in HPI & below Physical Exam Physical Exam: General: NAD, AAO x3, well nourished. HEENT: Normocephalic. Atraumatic. Conjunctiva pink, no scleral icterus. Neck: No carotid bruits, the carotid upstrokes are brisk. No JVD. No HJR Heart: Regular normal S-1 and S-2 no S-3 or S-4 gallop. No murmurs or rub appreciated. PMI is not displaced. No RV heave. Lungs: Clear bilateral without rales , rhonchi, or wheeze. Abdomen: Normal bowel sounds. Soft. Nontender. No masses or organomegaly. No abdominal bruits. Extremities: No clubbing, cyanosis, or edema. Pulses: radial=2/4, Dorsalis pedis =2/4, posterior tibial=2/4. Neuro: Cranial nerves grossly intact. No focal motor deficit. Results & Data Vital Signs (Past 12 Hours) Vital Signs Temp Pulse Pulse Resp BP Pulse Ox 10/09/18 07:42 60 10/09/18 07:07 36.8 C 61 18 111/66 96 10/09/18 03:22 36.8 C 57 L 17 106/62 97 10/08/18 23:38 36.8 C 61 15 109/64 97
--- NOTE | 2018-10-09 09:03 | Cardiac Catheterization ---
Cardiac Cath Procedure Full Procedure Date October 09, 2018 Pre-Procedure Diagnosis Pre-Procedure Diagnosis: Non STEMI AUC Score AUC Score: 8 Post-Procedure Diagnosis Post-Procedure Diagnosis: Severe CAD Procedure(s) Performed Procedure(s) Performed: Coronary Angiography and Left Heart Cath Employee Communications Intern Rick Terrazas DO Technology Teacher(s) Sam RTR Estimated Blood Loss Estimated Blood Loss: None Medication(s) Medication(s): Fentanyl, Lidocaine 1%, Nicardipine, Nitroglycerin and Versed Summary of Findings 99% mid Lcx 70% mid LAD Hemodynamics Rest Ao:: 108/64/86 Final Ao: 109/53/79 LV: 110/-2/5 Recommendations Recommendations: PCI without planned CABG Specimens Specimens: None Radiation Exposure (mGy) 455 Contrast (mls) 30 Fluids (cc crystalloids) Fluids (cc crystalloids): 70cc Nss Anesthesia Moderate sedation. Start 0820. End 0856. Sedation monitor: Mara SAINZ Procedural Complication(s) None ACC Data: Paper Ruler Cardiac Status Clinical evaluation leading to the procedure CAD Presenation: Non STEMI Anginal Classification: CCS IV Heart Failure: No Cardiogenic Shock within 24 Hours: No Cardiac Arrest within 24 Hours: No Imaging Studies Past 6 Months: No Stress Studies Past 6 Months: No STEMI OR Non-STEMI Symptom Onset Date: 10/06/18 Symptom Onset Time: 18:59 Coronary Anatomy Dominant: Right Left Main (% Stenosis): Normal LAD (% Stenosis): Mid (70% focal stenosis followed by a diffuse area of 50 to 60% stenosis) D1 (% Stenosis): Proximal (20%) D2 (% Stenosis): Normal D3 (% Stenosis): Normal Circumflex (% Stenosis): Mid (99%) OM1 (% Stenosis): Normal RCA (% Stenosis): Proximal (40%), Mid (30-40% diffuse) and Distal (30%) R PDA (% Stenosis): Normal R PL1 (% Stenosis): Normal AM (% Stenosis): Normal Diagnostic Physicians Name: Rick Terrazas DO Status: Urgent Closure Device Percutaneous Entry Location: Radial Closure Device: Radial Band Recommendations: PCI without planned CABG Intraprocedure Events Significant Disection: No Perforation: No
[2018-10-09] MEDS ORDERED: CLOPIDOGREL BISULFATE 300 MG TAB ONE (09:49)
--- NOTE | 2018-10-09 10:10 | Post Anesthesia Assessment ---
Date of Service October 09, 2018 Post Sedation Assessment Vital Signs Temp Pulse Pulse Resp BP Pulse Ox 10/09/18 07:42 60 10/09/18 07:07 36.8 C 61 18 111/66 96 10/09/18 03:22 36.8 C 57 L 17 106/62 97 10/08/18 23:38 36.8 C 61 15 109/64 97 10/08/18 19:03 36.8 C 61 19 122/78 97 10/08/18 15:15 37.1 C 54 L 55 L 20 114/78 96 10/08/18 11:58 37.0 C 71 18 132/88 97 Recovery Score Activity: Moves 4 extremities Respiration: Deep Breath/Cough Circulation: +/-20% PreAnes Value Consciousness: Fully Awake Oxygen Saturation: > 92% On Room Air Discharge Sedation Level of Care: Fast Track Phase II Post Sedation Plan On clinical assessment, the patient appears to have tolerated the sedation without complications. Patient is recovering as anticipated. Patient will continue to be monitored by nursing and may be discharged when sedation discharge criteria are met per below protocol. Upon Completions of procedure and additional 15 minutes continue every 5 minute vital signs and the P.A.R. score; then discharge to a Phase I or Fast Track to Phase II per the following guidelines: * Discharge Patient to appropriate Phase II area if PAR is 8 or greater or return to pre- procedure baseline. The post - procedure orders will be as directed. * If PAR score is less than 8 or not return to pre-procedure baseline then patient will follow Phase I monitoring till PAR is reached for Phase II. The Phase I may be done in procedure room or may call to secure a Phase I area. * If naloxone or flumazenil are used for reversal, hold in Phase I for continued monitoring from when last reversal dose was given for a minimum of 60 minutes or longer pending the nurse and/or physician discretion of patient condition before discharge to Phase II. Please call the Sedation Physician to re-evaluate and complete post-note for discharge to Phase II area. Do NOT discharge from procedure sedation or Phase 1 until post- sedation evaluation note is complete by procedure /sedation MD Sedation Discharge Instructions to be given to the patient at discharge to home.
[2018-10-09] MEDS: ASPIRIN 81 MG ECTAB PO SCH (10:15)
[2018-10-09] MEDS: CLOPIDOGREL BISULFATE 75 MG TAB PO SCH (10:16)
[2018-10-09] MEDS ORDERED: ONDANSETRON INJ 2 MG/ML 2 ML VIAL IV PRN (10:20)
--- NOTE | 2018-10-09 10:20 | Cardiac Catheterization ---
Cardiac Cath Procedure Full Procedure Date October 09, 2018 Pre-Procedure Diagnosis Pre-Procedure Diagnosis: Non STEMI AUC Score AUC Score: 8 Post-Procedure Diagnosis Post-Procedure Diagnosis: Severe CAD Procedure(s) Performed Procedure(s) Performed: Coronary Angiography and Drug Eluting Stent Derrickman Helper Martin Joshua MD Dispensing And Measuring Optician(s) Sam RTWilma Estimated Blood Loss Estimated Blood Loss: None Medication(s) Medication(s): Clopidogrel, Fentanyl, Heparin, Nicardipine, Nitroglycerin and Versed Summary of Findings Indication: High risk NSTEMI Access: 6 Fr right radial artery Catheters: 5 Fr EBU 3.5 guide Findings: For full details of patient's coronary angiography please cath report dictated by Dr. Terrazas. Briefly, patient found to have severe multi-vessel disease including a 99 % stenosis involving the mid circumflex and 70% diffuse mid LAD stenosis. Decision to proceed with PCI. -- PCI -- Antithrombotic therapy: Heparin, clopidogrel Procedure: Left main cannulated with 5 Fr EBU 3.5 guide BMW wire passed across lesion into distal circumflex Mid circumflex lesion predilated with 2.5 compliant balloon Dilated lesion stented with 2.75 x 15 mm David drug-eluting stent across takeoff of OM Whisper wire placed into OM 1 Stent post-dilated with 2.75 noncompliant balloon IC vasodilators administered for spasm Stent struts, ostium of OM1 dilated with 1.5 balloon Post procedure HALLE 3 flow, stent well expanded with minimal residual stenosis and no apparent cardiac complications. Mild residual stenosis in OM1 with HALLE- 3 flow. BMW wire removed from circumflex and placed into distal LAD Mid LAD dilated with 2.5 balloon Mid LAD stented with 2.75 x 33 mm Xience Katalina drug-eluting stent Mid LAD stent postdilated with 3.0 and 3.5 NC balloons Post procedure HALLE 3 flow, stent well expanded with minimal residual stenosis and no apparent cardiac complications. Arterial Closure: TR band Summary: 1. Successful PCI of mid circumflex with single drug-eluting stent (2.75 x 15 [place]). 2. Successful PCI of mid LAD with single drug-eluting stent (2.75 x 33 Xience Katalina; postdilated with 3.5 NC). Recommendations: To PCU for continued monitoring Reloaded with clopidogrel 300 mg in lab technician Continue dual-antiplatelet therapy for at least one year Continue statin, and ASCVD risk factor modification Consult cardiac Rehab Hemodynamics Rest Ao:: 102/60/80 Final Ao: 158/87/115 LV: 110/5 Recommendations Recommendations: PCI without planned CABG Specimens Specimens: None Radiation Exposure (mGy) 2270 Contrast (mls) 200 Fluids (cc crystalloids) Fluids (cc crystalloids): 200 Drains Drains: None Anesthesia Moderate Procedural Complication(s) None Disposition PCU ACC Data: Metal Bonder Cardiac Status Clinical evaluation leading to the procedure CAD Presenation: Non STEMI Anginal Classification: CCS IV Heart Failure: No Cardiogenic Shock within 24 Hours: No Cardiac Arrest within 24 Hours: No Imaging Studies Past 6 Months: Yes Stress Studies Past 6 Months: No Diagnostic Physicians Name: Martin Joshua MD Status: Elective Closure Device Percutaneous Entry Location: Radial Closure Device: Radial Band Recommendations: PCI without planned CABG PCI Indication: PCI for high risk Non-MALISSA Lesion Segment Name: Mid circumflex Culprit Artery: Yes Stenosis Prior to Rx (%): 99 Chronic Total Occlusion: No IVUS: No FFR: No Pre-Procedure HALLE Flow: 2 Previously Treated Lesion: No Lesion Complexity: Non-High/Non-C Lesion Length (mm): 12 Thrombus Present: Yes Bifurcation Lesion: Yes Guidewire Across Lesion: Stenosis Post-Procedure (%): 0 Post-Procedure HALLE Flow: 3 Devices(s) Deployed: Yes Yes Lesion #2 Segment Name: Mid LAD Culprit Artery: No Stenosis Prior to Rx (%): 70 Chronic Total Occlusion: No IVUS: No FFR: No Pre-Procedure HALLE Flow: 3 Previously Treated Lesion: No Lesion Complexity: Non-High/Non-C Lesion Length (mm): 28 Thrombus Present: No Bifurcation Lesion: No Guidewire Across Lesion: Yes Stenosis Post-Procedure (%): 0 Post-Procedure HALLE Flow: 3 Devices(s) Deployed: Yes Intraprocedure Events Significant Disection: No Perforation: No
[2018-10-09] MEDS ORDERED: SODIUM CHLORIDE 0.9% 1000ML 1,000 ML IV SCH (10:30)
[2018-10-09] MEDS: METOPROLOL TARTRATE 25 MG TAB PO SCH ×2 (11:33→20:34)
[2018-10-09] MEDS: ATORVASTATIN 40 MG TAB PO SCH (11:33)
--- NOTE | 2018-10-09 12:17 | Hospitalist Progress Note ---
Date of Service October 09, 2018 Assessment & Plan (1) Non-ST elevation (NSTEMI) myocardial infarction: (2) Substernal chest pain: Present on admission with Jaw pain, chest discomfort, b/l arms tingling associated with diaphoresis Risk factor smoker and family hx (Dad from heart attack at age 45) Initial troponin negative, troponin peaked to 32, then trending 29 EKG showed T wave inversion on admission CXR showed no acute finding CTA chest showed no evidence for PE Repeat EKG showed no ischemic changes Received Plavix [id number] loading Continue plavix 75mg, aspirin, statin and IV heparin drip Nitrate discontinued and starting on low dose metoprolol 12.5mg Plan to get for cardiac cath on Tuesday Chol 183 and LDL 118 ECHO showed small sinus wall motion abnormality involving the base and mid posterior wall and the base lateral wall with hypokinesis of the segment normal left ventricle systolic function with ejection fraction 60-65% Continue monitor in tele Will make NPO after midnight for cardiac cath 10/09 S/P cardiac cath done today revealed severe multi-vessel disease including a 99 % stenosis involving the mid circumflex and 70% diffuse mid LAD stenosis. 1. Successful PCI of mid circumflex with single drug-eluting stent (2.75 x 15 [place]). 2. Successful PCI of mid LAD with single drug-eluting stent (2.75 x 33 Xience Katalina; postdilated with 3.5 NC). Cardiology recommended to continue dual-antiplatelet therapy with plavix and aspirin for at least one year Continue atorvastatin 80mg daily and metoprolol 12.5 mg BID IV heparin drip discontinued Counseling on smoking cessation Consult cardiac Rehab Continue monitor in Tele (3) D-dimer, elevated: Elevated D-dimer on admission CTA chest showed no PE (4) Dyslipidemia, goal LDL below 70: LDL 118 and Chol 183 Continue atorvastatin 80mg daily Counseling to follow a healthy diet with low cholesterol (5) Tobacco use: Counseling on smoking cessation Declined any nicotine patch DVT px ambulates CODE STATUS FULL CODE Disposition Continue monitor in tele will discharge home tomorrow Subjective Pt was seen and examined Lying in bed with no distress eating lunch Pt said that she feels fine She had cardiac cath done this morning Denies any chest pain, palpitation, dizziness and SOB Physical Exam Physical Exam: General- No acute distress Head- atraumatic Eyes- PERRL, EOMI, ENT- oropharynx clear Neck- supple, no JVD Lungs- clear to auscultation Heart- regular rhythm; no murmur Abdomen- normal bowel sounds, soft, nontender Extremities- no calf tenderness, right wrist with trace of blood from the cardiac cath Neuro- alert, oriented x 3; PERRL, EOMI; no facial palsy; no dysarthria Skin- warm & dry Results & Data Vital Signs (Past 12 Hours) Vital Signs Temp Pulse Pulse Resp BP BP Pulse Ox 10/09/18 11:05 59 L 16 139/100 98 10/09/18 10:50 36.8 C 63 16 133/83 98 10/09/18 10:35 57 L 16 156/92 H 98 10/09/18 10:20 61 16 130/83 96 10/09/18 07:42 60 10/09/18 07:07 36.8 C 61 18 111/66 96 10/09/18 03:22 36.8 C 57 L 17 106/62 97
[2018-10-10] MEDS: CLOPIDOGREL BISULFATE 75 MG TAB PO SCH (08:37)
[2018-10-10] MEDS: ATORVASTATIN 40 MG TAB PO SCH (08:37)
[2018-10-10] MEDS: METOPROLOL TARTRATE 25 MG TAB PO SCH (08:37)
[2018-10-10] MEDS: ASPIRIN 81 MG ECTAB PO SCH (08:38)
[2018-10-10 09:04] LABS: BUN Creatinine Ratio 9.5 (10-20); Calcium 8.7 mg/dl (8.5-10.1); Creatinine Clr Calc Pharmacy 58.9 ml/min; Est GFR (African American) 76.6; Est GFR (Non-African American) 66.1; Potassium 3.8 mmol/L (3.5-5.1)
--- NOTE | 2018-10-10 12:15 | Hospitalist Progress Note ---
Date of Service October 10, 2018 Assessment & Plan (1) Non-ST elevation (NSTEMI) myocardial infarction: (2) Substernal chest pain: Present on admission with Jaw pain, chest discomfort, b/l arms tingling associated with diaphoresis Risk factor smoker and family hx (Dad from heart attack at age 45) Initial troponin negative, troponin peaked to 32, then trending 29 EKG showed T wave inversion on admission CXR showed no acute finding CTA chest showed no evidence for PE Repeat EKG showed no ischemic changes Received Plavix [id number] loading Continue plavix 75mg, aspirin, statin and IV heparin drip Nitrate discontinued and starting on low dose metoprolol 12.5mg Plan to get for cardiac cath on Tuesday Chol 183 and LDL 118 ECHO showed small sinus wall motion abnormality involving the base and mid posterior wall and the base lateral wall with hypokinesis of the segment normal left ventricle systolic function with ejection fraction 60-65% Continue monitor in tele Will make NPO after midnight for cardiac cath 10/10 S/P cardiac cath done today revealed severe multi-vessel disease including a 99 % stenosis involving the mid circumflex and 70% diffuse mid LAD stenosis. 1. Successful PCI of mid circumflex with single drug-eluting stent (2.75 x 15 [place]). 2. Successful PCI of mid LAD with single drug-eluting stent (2.75 x 33 Xience Katalina; postdilated with 3.5 NC). Cardiology recommended to continue dual-antiplatelet therapy with plavix and aspirin for at least one year Continue atorvastatin 80mg daily and metoprolol 12.5 mg BID IV heparin drip discontinued on 10/09 Counseling on smoking cessation Consult cardiac Rehab Clinically stable Follow up with cardiology in 2-4 weeks (3) D-dimer, elevated: Elevated D-dimer on admission CTA chest showed no PE (4) Dyslipidemia, goal LDL below 70: LDL 118 and Chol 183 Continue atorvastatin 80mg daily Counseling to follow a healthy diet with low cholesterol (5) Tobacco use: Counseling on smoking cessation Declined any nicotine patch DVT px ambulates CODE STATUS FULL CODE Disposition Follow up with your primary care provider Dr. Gomez on 10/13 @ 10:45 AM Follow up with cardiology Cardiac rehab referral Subjective Pt was seen and examined Lying in bed with no distress Pt said that she feels fine Denies any chest pain, palpitation, dizziness and SOB Physical Exam Physical Exam: General- No acute distress Head- atraumatic Eyes- PERRL, EOMI, ENT- oropharynx clear Neck- supple, no JVD Lungs- clear to auscultation Heart- regular rhythm; no murmur Abdomen- normal bowel sounds, soft, nontender Extremities- no calf tenderness, right wrist with no hematoma Neuro- alert, oriented x 3; PERRL, EOMI; no facial palsy; no dysarthria Skin- warm & dry Results & Data Vital Signs (Past 12 Hours) Vital Signs Temp Pulse Pulse Resp BP Pulse Ox 10/10/18 11:47 56 L 10/10/18 11:30 36.9 C 61 16 110/69 95 10/10/18 08:24 36.9 C 66 20 111/66 97 10/10/18 04:47 36.8 C 65 17 110/70 99 10/10/18 01:02 58 L
[2018-10-10] MEDS ORDERED: NITROGLYCERIN SL 0.4 MG/TAB TAB SL PRN (14:04)
--- NOTE | 2018-10-10 14:05 | Cardiology Progress Note ---
Date of Service October 10, 2018 Assessment & Plan (1) Non-ST elevation (NSTEMI) myocardial infarction: (2) Tobacco use: (3) Dyslipidemia, goal LDL below 70: (4) AIVR (accelerated idioventricular rhythm): (5) Family history of premature CAD: Patient underwent coronary angiography with drug-eluting stent implantation x2 to the left circumflex and LAD. Left circumflex likely culprit artery. Discussed importance of continuing dual antiplatelet therapy for minimum of 6 months post percutaneous intervention. Smoking cessation advised. Continue other cardiovascular medications including beta-rajendra, statin, and as needed sublingual nitroglycerin. I will schedule close cardiology follow-up in 2 weeks. Patient will consider cardiac rehab. Postprocedural limitations as noted below: ACTIVITY RECOMMENDATIONS: It is common to feel weak and fatigue for a few days. * Do not drive or operate any motorized equipment for the next three days. * Limit stair usage (2 or 3 trips a day only) for the next three days. * Do not lift anything heavier than 10 pounds for the next three days. * Do not engage in vigorous exercise or any sports for the next five days. * You may shower the day after your procedure, but do not immerse the area for three days. Cleanse the site gently with soap and water. SPECIAL CARE INSTRUCTIONS: * You may replace the pressure dressing or band-aid the morning after the procedure. * After your procedure, it is normal to have a small bruise or small lump at the site. Examine your site daily for any change in the bruise or lump, redness, swelling, drainage or numbness. Notify your doctor if any change. BLEEDING: * If there is a small amount of bleeding at the site, lie down and apply firm pressure with a clean cloth for ten minutes. When the bleeding stops, lie quietly keeping the procedure limb straight for six hours. Notify your doctor as soon as possible. * If the bleeding does not stop after ten minutes or if there is a large amount of bleeding or spurting, call 911 immediately. Continue to lie down and hold firm pressure until help arrives. SKIN IRRITATION: * You may experience some redness and/or swelling in the area where radiation was administered. If any skin irritation occurs, please contact your family physician. Subjective Patient seen and examined at the bedside. Feeling well overnight. No recurrent chest discomfort. Cardiac catheterization completed 10/09/2018 without complication. Coronary angiography demonstrated two-vessel coronary disease with a 99% mid circumflex and 70% mid LAD. She received drug-eluting stents to both LAD and left circumflex. Loaded with Plavix over the weekend. Tolerating current medications. Anxious for discharge. Review of Systems Review of Systems: All systems reviewed & are unremarkable except as noted in HPI & below Physical Exam Physical Exam: General: NAD, AAO x3, well nourished. HEENT: Normocephalic. Atraumatic. Conjunctiva pink, no scleral icterus. Neck: No carotid bruits, the carotid upstrokes are brisk. No JVD. No HJR Heart: Regular normal S-1 and S-2 no S-3 or S-4 gallop. No murmurs or rub appreciated. PMI is not displaced. No RV heave. Lungs: Clear bilateral without rales , rhonchi, or wheeze. Abdomen: Normal bowel sounds. Soft. Nontender. No masses or organomegaly. No abdominal bruits. Extremities: Right wrist without ecchymosis or hematoma. No clubbing, cyanosis, or edema. Pulses: radial=2/4, Dorsalis pedis =2/4, posterior tibial=2/4. Neuro: Cranial nerves grossly intact. No focal motor deficit. Results & Data Vital Signs (Past 12 Hours) Vital Signs Temp Pulse Pulse Resp BP BP Pulse Ox 10/10/18 12:59 36.9 C 61 16 113/90 95 10/10/18 11:47 56 L 10/10/18 11:30 36.9 C 61 16 110/69 95 10/10/18 08:24 36.9 C 66 20 111/66 97 10/10/18 04:47 36.8 C 65 17 110/70 99
--- NOTE | 2018-10-16 01:27 | Discharge Summary ---
Date of Service October 10, 2018 Admission HPI Per Admitting Provider 43 yo Female with PMH of tobacco abuse, arthritis present to the ER for chest pain. Pt said that this morning while drinking coffee, she developed left side jaw pain. She said that then she developed mid sternal chest pain. She describes the chest pain pressure like, non radiating, constant, grade 8 out 10. She said that she developed also tingling in both arms. Pt said that she started to pace back and forth in her room, but the pain did not improve or worsening; although she became diaphoresis. She said that she called EMS. EMS gave her 4 baby aspirin and nitro en route with no relief. She said that in the ER she received IV pain med that help with the pain. Pt said that she never experienced any chest pain in the past. She said that her dad from a heart attack at age 45. Currently denies any chest pain, palpitation, dizziness, nausea and vomiting. Initial troponin done in the ER was negative and elevated D-dimer. EKG showed T wave inversion. Admission Exam Per Admitting Provider General- No acute distress Head- atraumatic Eyes- PERRL, EOMI, ENT- oropharynx clear Neck- supple, no JVD Lungs- clear to auscultation Heart- regular rhythm; no murmur Abdomen- normal bowel sounds, soft, nontender Extremities- no calf tenderness Neuro- alert, oriented x 3; PERRL, EOMI; no facial palsy; no dysarthria Skin- warm & dry Principal Diagnosis Non-ST elevation (NSTEMI) myocardial infarction Substernal chest pain D-dimer, elevated Dyslipidemia Tobacco abuse Discharge Exam General- No acute distress Head- atraumatic Eyes- PERRL, EOMI, ENT- oropharynx clear Neck- supple, no JVD Lungs- clear to auscultation Heart- regular rhythm; no murmur Abdomen- normal bowel sounds, soft, nontender Extremities- no calf tenderness, right wrist with no hematoma Neuro- alert, oriented x 3; PERRL, EOMI; no facial palsy; no dysarthria Skin- warm & dry Discharge Data Allergies Allergy/AdvReac Type Severity Reaction Status Date / Time Sulfa (Sulfonamide Allergy Unknown HIVES Verified 10/06/18 15:00 Antibiotics) Consultations 10/06/18 17:05 ED Decision to Admit Stat 10/06/18 19:54 Consult Cardiology Routine 10/09/18 07:13 Consult Cardiac Catheterization Routine 10/09/18 10:21 Consult Cardiac Rehabilitation Routine Procedures Performed Operation Date: 10/09/18 08:30 Actual Procedures p Cath, Left with Cors and Vent - Luis Joshua MD s Cineradiography w/Routine Exam - Luis Joshua MD s Drug Eluting Stent SGl Vessel - Luis Joshua MD s Drug Eluting Stent each ADDTL Vessel - Luis Joshua MD Ordered Studies 10/06/18 15:10 CT angio chest PE protocol Stat 10/09/18 06:46 CL Cath Imgs for PACS use only Routine CT ANGIOGRAM OF THE CHEST CLINICAL HISTORY: Atypical chest pain and shortness of breath. Possible pulmonary wasn't COMPARISON STUDY: Chest x-ray dated 10/06/2018 TECHNIQUE: Following the IV administration of 118 mL of Optiray-320, CT angiogram of the thorax was performed from the thoracic inlet to the lung bases utilizing the pulmonary embolus protocol. Images are reviewed in the axial, sagittal, and coronal planes. IV contrast was administered without complication. MIP imaging was performed. A dose lowering technique was utilized adhering to the principles of ALARA. CT DOSE: 230.29 mGy.cm FINDINGS: No pathologically enlarged axillary mediastinal or hilar lymph nodes were visualized. There was no evidence of thoracic aortic dilatation. There were no pulmonary artery filling defects to indicate acute pulmonary embolism. No pleural effusions are visualized. There was no evidence of focal pulmonary consolidation. There are mild dependent atelectatic changes IMPRESSION: 1. No acute intrathoracic findings 2. No evidence of acute pulmonary embolism 3. No evidence of focal pulmonary consolidation Electronically signed by: Favian Brandt M.D. 10/06/2018 4:32 PM Dictated: 10/06/18 1629 Transcribed: 10/06/18 1631 XR chest 1V portable CLINICAL HISTORY: Chest pain and shortness of breath. COMPARISON STUDY: No previous studies for comparison. FINDINGS: Lung volumes are normal. Lungs are clear. There is no pneumothorax or pleural effusion. Cardiac size is normal. Mediastinal contours are normal. There is no evidence for pulmonary edema. IMPRESSION: No acute cardiopulmonary findings. Electronically signed by: Patric Spear M.D. 10/06/2018 2:51 PM Dictated: 10/06/18 1451 Transcribed: 10/06/18 1451 Hospital Course (1) Non-ST elevation (NSTEMI) myocardial infarction: (2) Substernal chest pain: Present on admission with Jaw pain, chest discomfort, b/l arms tingling associated with diaphoresis Risk factor smoker and family hx (Dad from heart attack at age 45) Initial troponin negative, troponin peaked to 32, then trending 29 EKG showed T wave inversion on admission CXR showed no acute finding CTA chest showed no evidence for PE Repeat EKG showed no ischemic changes Received Plavix [id number] loading Continue plavix 75mg, aspirin, statin and IV heparin drip Nitrate discontinued and starting on low dose metoprolol 12.5mg Plan to get for cardiac cath on Tuesday Chol 183 and LDL 118 ECHO showed small sinus wall motion abnormality involving the base and mid posterior wall and the base lateral wall with hypokinesis of the segment normal left ventricle systolic function with ejection fraction 60-65% Continue monitor in tele Will make NPO after midnight for cardiac cath 10/10 S/P cardiac cath done today revealed severe multi-vessel disease including a 99 % stenosis involving the mid circumflex and 70% diffuse mid LAD stenosis. 1. Successful PCI of mid circumflex with single drug-eluting stent (2.75 x 15 David). 2. Successful PCI of mid LAD with single drug-eluting stent (2.75 x 33 Xience Katalina; postdilated with 3.5 NC). Cardiology recommended to continue dual-antiplatelet therapy with plavix and aspirin for at least one year Continue atorvastatin 80mg daily and metoprolol 12.5 mg BID IV heparin drip discontinued on 10/09 Counseling on smoking cessation Consult cardiac Rehab Clinically stable Follow up with cardiology in 2-4 weeks (3) D-dimer, elevated: Elevated D-dimer on admission CTA chest showed no PE (4) Dyslipidemia, goal LDL below 70: LDL 118 and Chol 183 Continue atorvastatin 80mg daily Counseling to follow a healthy diet with low cholesterol (5) Tobacco use: Counseling on smoking cessation Declined any nicotine patch DVT px ambulates CODE STATUS FULL CODE Disposition Follow up with your primary care provider Dr. Gomez on 10/13 @ 10:45 AM Follow up with cardiology Cardiac rehab referral Total Time Total Time Spent Total Time Spent (In Minutes): 35 minutes Total Time Includes: Examination of the Patient, Discharge Planning, Medication Reconciliation, Communication With Other Providers and Other Discharge Plan Discharge Items Patient Disposition: Home - Self-Care Reason For Visit: CHEST PAIN Discharge Diagnosis: Non-ST elevation (NSTEMI) myocardial infarction Substernal chest pain D-dimer, elevated Dyslipidemia Tobacco abuse Discharge Goals: Decrease discomfort, Improve disease control, Improve function and Increase independence Activity: As commented below Non-emergency contact: Primary Care Provider, Hospitalist and American Sign Language Teacher Call non-emergency contact if: you have any medication questions, your wound has increased redness, your wound has increased drainage and your wound pain has increased Follow-up/Referrals: PCP,NO [Primary Care Provider] - Diet: Heart Healthy Addtl Provider Instructions: Follow up with your primary care provider Dr. Gomez on 10/13 @ 10:45 AM Follow up with cardiology Dr. Terrazas in 2 weeks (office will call you for follow up) Cardiac rehab referral (Your physician or the heart doctor will arrange for the referral) Continue dual-antiplatelet therapy with plavix and aspirin for at least one year Please monitor for abnormal bleeding (such as blood in your stool and your urine ) Please notify you physician or seek medical attention if you develop any abnormal bleed Counseling on smoking cessation Follow up a healthy diet with low cholesterol You will need to check you liver enzymes in 2 weeks to monitor your liver fu nction since you are statin on cholesterol medication (Atorvastatin),(Physician will order it) Avoid any NSAIDs (Motrin, aleve, naproxen, Ibuprofen, celebrex, Advil, ..) due to increase risk of bleeding Keep the area for the cardiac cath clean and dry to avoid any infection Do not use creams, lotions or ointment on the wound site Do not take a bath, tub soak, go in a Jacuzzi, or swim in a pool or [place]ma for one week after the procedure. Do not participate in strenuous activities for 3 days after the procedure. Gradually increase your activities until you reach your normal activity level within two days after the procedure. Avoid heavy lifting (more than 10 pounds) and pushing or pulling heavy objects for the first 5 days after the procedure. Prescriptions: New atorvastatin 40 mg Tablet 80 mg PO QAM 30 Days Qty: 60 RF: 1 clopidogrel 75 mg Tablet 75 mg PO QAM 30 Days Qty: 30 RF: 1 aspirin [Ecotrin Low Strength] 81 mg Tablet,Delayed Release (Dr/Ec) 81 mg PO QAM 30 Days Qty: 30 RF: 0 metoprolol tartrate 25 mg Tablet 12.5 mg PO BID 30 Days Qty: 30 RF: 1 Continued vitamin B complex Tablet 1 tab PO DAILY RF: 0 Discontinued celecoxib [Celebrex] 200 mg capsule 200 mg PO DAILY RF: 0 Stand-Alone Forms: Call Back Authorization, [facility]/Other Patient Handouts: Clopidogrel Bisulfate Oral tablet, Metoprolol Tartrate Oral tablet Discharge Orders: Discharge Order (Routine); Ordered 10/10/18 Ordered By: Claudio Adams Admission Data Admit Date/Time: 10/08/18 18:39 Attending Provider: Claudio Adams Admit Provider: Claudio Adams Primary Care Provider: PCP,NO Other Providers: Claudio Adams ; Rick Terrazas Service: Telemetry Other Interventions: Discharge Summary Assessment (RN) Last Done: 10/10/18 12:59 DC Date/Time DO NOT enter until pt leaves facility: 10/10/18 14:05
== END 2018-10-10 14:05 | disposition home or self-care (01) | DRG 247 ==
LOC: 2E 14:05 → ED 14:05 → 2E 19:33
DX: I21.4 Non-ST elevation (NSTEMI) myocardial infarction; Z82.49 Family history of ischemic heart disease and other diseases of the circulatory system; F17.210 Nicotine dependence, cigarettes, uncomplicated; E78.5 Hyperlipidemia, unspecified; I44.2 Atrioventricular block, complete